=== PATIENT | female | born 1980 | race Caucasian/White ===

== ENCOUNTER 2016-11-28 14:31 | Outpatient (RCR) | payer OTHER | END 2017-01-10 08:55 | LOC: WSOH 14:31 | DX: M65.831 Other synovitis and tenosynovitis, right forearm (principal); X50.3XXA Overexertion from repetitive movements, initial encounter; Y99.0 Civilian activity done for income or pay ==

== ENCOUNTER → 2018-12-12 | Outpatient (CLI) | payer MEDICAID ==
[~2018-12-12] VITALS: Ht 160 cm; Wt 119.7 kg
[~2018-12-12] MED LIST: ZOLOFT 50MG50 MG PO
[2018-12-12 10:17] VITALS: BP 126/70; PULSE 76
== END ==
LOC: LIGHT 10:04
DX: E66.01 Morbid (severe) obesity due to excess calories (principal); Z68.43 Body mass index [BMI] 50.0-59.9, adult; Z71.3 Dietary counseling and surveillance

== ENCOUNTER → 2018-12-18 | Outpatient (CLI) | payer MEDICAID | LOC: LIGHT 10:42 | DX: F32.9 Major depressive disorder, single episode, unspecified (principal); M54.5 Low back pain; E66.01 Morbid (severe) obesity due to excess calories; Z68.42 Body mass index [BMI] 45.0-49.9, adult; Z71.3 Dietary counseling and surveillance ==